=== PATIENT | female | born 1955 | race Caucasian/White ===

== ENCOUNTER → 2016-11-27 | Outpatient (CLI) | payer OTHER ==
[~2016-11-27] MED LIST: CHOL100013 PO; DEXL60CA PO; IBUP200C9 PO; MAGN400C PO; METF500T9 PO; MULT-208 PO; OMEG10006 PO; TURM1POW2 MC
--- NOTE | 2016-11-27 08:56 | KCIC ---
MR LUMBAR SPINE HISTORY:Reason For StudyReason: ACUTE LUMBAR RADICULOPATHY / Spl. Instructions: / History: Pt states chronic LBP, worse in last 2 yrs. Rt hip and leg pain. Technique: Sagittal T2, sagittal STIR, and sagittal T1-weighted images were obtained. Additional axial T1 and T2 weighted imaging was also performed. FINDINGS: There is no compression fracture. Overall bone marrow signal is within normal limits apart from Modic type 2 degenerative endplate changes at L4-L5 and L5-S1. The conus terminates normally at the level of T12. Visualized intra-abdominal contents demonstrates a small cortical cyst on the left. At L5-S1 there is moderate disc height loss and a small disc protrusion. The protrusion and disc height loss to cause moderate right foraminal stenosis. Correlate for right L5 radiculopathy. At L4-L5 there is facet arthropathy with grade 1 degenerative anterolisthesis. There is also ligamentum flavum thickening. This results in moderate central spinal stenosis and right foraminal stenosis. At L3-L4 there is mild facet arthropathy but no spinal stenosis. Impression: - Degenerative disc and facet disease greatest at L4-L5 where there is grade 1 degenerative anterolisthesis and moderate central spinal stenosis. There is also moderate right foraminal stenosis at this level. - L5-S1 there is moderate right foraminal stenosis. Electronically signed by: Zachary Burch (Nov 27, 2016 08:54:41)
== END | disposition home or self-care (01) ==
LOC: KCIC MRI 07:41
PROVIDERS: ATTEND Internal Medicine
DX: M54.16 Radiculopathy, lumbar region (principal)
CPT/HCPCS: 72148

== ENCOUNTER → 2016-12-09 | Outpatient (CLI) | payer OTHER ==
--- NOTE | 2016-12-09 08:51 | KCIC ---
PROCEDURE Lumbar spine, flexion and extension. HISTORY Lower back pain. FINDINGS Lateral neutral, flexion and extension views of the lumbar spine are obtained. There is grade 1 anterolisthesis of L4 on L5, measuring 6 mm in neutral position and increasing to 9 mm with flexion and decreasing to 5 mm with extension. There is grade 1 anterolisthesis of L3 on L4 measuring 2 mm in neutral position and increasing to 6 mm with flexion and decreasing to 1 mm with extension. There is degenerative endplate remodeling with disc space narrowing predominately at L5-S1, and to a lesser extent, L4-L5. There is facet arthropathy predominately at the lower lumbar levels. There are suspected mild scoliosis. IMPRESSION 1. Grade 1 anterolisthesis of L4 on L5, and to a lesser extent, L3 on L4. This changes between flexion and extension. 2. Degenerative change predominately at L5-S1, and to a lesser extent, L4-L5. Electronically signed by: Luicta Preciado (Dec 09, 2016 08:50:18)
== END | disposition home or self-care (01) ==
LOC: KCIC 08:05
PROVIDERS: ATTEND Neurological Surgery
DX: M43.16 Spondylolisthesis, lumbar region (principal)
CPT/HCPCS: 72100

== ENCOUNTER → 2016-12-25 | Outpatient (CLI) | payer OTHER ==
[~2016-12-25] MED LIST changes: +IOHEXOL 180 MG/ML 10 ML VIAL. ONE; +methylPREDNISolone ACETATE 40 MG/ML VIAL. ONE; +methylPREDNISolone ACETATE 80 MG/ML VIAL. ONE
--- NOTE | 2016-12-25 17:39 | PN ---
DATE: 12/25/2016 DIAGNOSES: 1. Lumbar radiculopathy with lumbar spinal stenosis and spondylosis. 2. Cervical radiculopathy with cervical degenerative disk disease and cervical herniated disk. HISTORY OF PRESENT ILLNESS: The patient is a 61-year-old female who returns for followup status post previous cervical epidural steroid injection. The patient was last seen in 09/2015. The patient had done well with injections at that time, returns now with pain in the low back and right lower extremity, mainly with standing and walking, worse with lifting or stooping. The patient reports this as radiating across the low back into the right lateral and anterior medial thigh, medial lower leg into the foot and great toe with pain and occasional numbness with standing. The patient reports a 3 to 10 on a scale of 10, 10 with standing and walking. The patient reports no symptoms on the left side. No loss of motor function, but significant fatigability in the right lower extremity with activity. The patient reports it awakens her from sleep at night that is becoming more and more problematic. The patient did have an MRI scan of the lumbar spine dated 11/27/2016 showing degenerative disk and facet disease, greatest at L4-L5 with grade 1 degenerative anterolisthesis and moderate central spinal stenosis, moderate right foraminal stenosis at this level as well with moderate right foraminal stenosis at L5-S1 also. The patient reports no loss of motor function, but again significant fatigability with the right leg, affecting most of her daily activities significantly and sleeping. PAST MEDICAL HISTORY: Significant for arthritis and cervical spine herniation. FAMILY HISTORY: Significant for cancer and diabetes. PAST SURGICAL HISTORY: Significant for a hysterectomy in 1998. CURRENT MEDICATIONS: Include ibuprofen, vitamin ____, Dexilant, magnesium, omega acids, multivitamins, and Nasonex spray. ALLERGIES: The patient is allergic to CODEINE, LEVAQUIN, and ERYTHROMYCIN. REVIEW OF SYSTEMS: The patient's review of systems is positive for those items mentioned in the history of present illness. It is complete, full, and well documented on the patient's chart. All systems were reviewed and otherwise negative. PHYSICAL EXAMINATION: VITAL SIGNS: Today, the patient's blood pressure is 132/79, pulse 71, respirations 18, and temperature 98.1 degrees Fahrenheit. Height is 5 feet 3-1/2 inches, weighs 166 pounds. GENERAL: The patient is awake, alert, oriented, appropriate, very pleasant demeanor. HEENT: Head shows normocephalic, atraumatic. Extraocular movements are intact and symmetrical. Oral cavity shows mucous membranes are moist and pink. Dentition is intact. NECK: Shows anterior throat supple without palpable lymphadenopathy noted. Swallow reflex is symmetrical. Neck shows good rotational motion of cervical spine including extension and flexion without difficulty or pain reported. CHEST: Shows normal on inspection. Breath sounds are clear to auscultation bilaterally. HEART: Shows S1 and S2 clear. No heart murmurs are auscultated. ABDOMEN: Soft, nontender, and nondistended. No palpable organomegaly is noted. No rebound or guarding demonstrated. BACK: Shows spine grossly in midline. No previous bruises, lesions, rashes, or scars are noted. Lumbar paraspinous muscle shows symmetrical on appearance, with palpation shows some mild tenderness to palpation, but only diffusely in the lower lumbar distribution bilaterally and is roughly symmetrical. No radiation, no evidence of atrophy or hypertrophy. No tenderness over the spinous processes, sacrum, or sacroiliac regions. The patient shows good rotation and motion of the lumbar spine both laterally greater than 10 degrees right and left as well as extension greater than 10 degrees, forward flexion 45 degrees without difficulty or pain reported. Lower extremities show deep tendon reflexes at 2+ in the patellar, 1+ tendo calcaneus tendons. Motor exam is strong with 5/5 dorsiflexion and extension. Quadriceps and hamstring flexion is symmetrical. Straight leg raise is negative bilaterally. Gaenslen's and Teoiflo's maneuvers are negative for reproduction of pain bilaterally as well. The patient is able to stand on her toes without difficulty or loss of balance, walks with a normal-appearing gait for short distance in the office, not using any assistive devices. Options were discussed with the patient, and the patient's old chart was reviewed and her current medication regimen updated again as noted. We will plan on a lumbar epidural steroid injection today with fluoroscopic guidance. This procedure was discussed using models to describe the procedure as well as risks discussed including, but not limited to bleeding, infection, possibility of epidural hematoma, subsequent neurologic compromise, dural puncture, headaches, spinal cord and/or nerve damage, side effects of steroid medication, and poor results regarding pain control. The patient understands and wishes to proceed. The patient will return to the clinic in approximately 2 weeks for followup, was counseled on return appointment, activity level, and side effects to be aware of. DIAGNOSIS: Lumbar radiculopathy with lumbar spinal stenosis and lumbar spondylosis. PROCEDURES: Lumbar epidural steroid injection in translaminar approach at the L4-L5 level using C-arm fluoroscopic guidance under sterile prep and drape using local anesthetic. MEDICATION INJECTED: Depo-Medrol 120 mg plus 10 mL of preservative-free normal saline and 2 mL of Isovue for contrast. CONDITION AT DISCHARGE: Stable. The patient tolerated procedure well, had no complications. ODALYS ROBERTS MD DR: STEVEN/shelbie JOB#: [id number] / [id number]
== END ==
LOC: PNCL 07:24
PROVIDERS: ATTEND Anesthesiology
DX: M48.06 Spinal stenosis, lumbar region (principal); M54.16 Radiculopathy, lumbar region; M47.896 Other spondylosis, lumbar region; Z83.3 Family history of diabetes mellitus; M19.90 Unspecified osteoarthritis, unspecified site
CPT/HCPCS: 62323; J1030; J1040

== ENCOUNTER → 2017-01-08 | Outpatient (CLI) | payer OTHER ==
--- NOTE | 2017-01-08 18:47 | PAIN ---
DATE OF SERVICE: 01/08/2017 PROGRESS NOTE FOR PAIN CLINIC DIAGNOSES: 1. Cervical radiculopathy with cervical degenerative disk disease and cervical herniated disk. 2. Lumbar radiculopathy with lumbar spinal stenosis and lumbar spondylosis. HISTORY OF PRESENT ILLNESS: The patient is a 61-year-old female who returns for followup status post cervical epidural steroid injection x 2 and lumbar epidural steroid injection x 1. The patient reports she did quite well after the last injection in the low back with about 60% improvement overall in the low back, right leg. The patient reports the pain is returning now over the past several weeks in the right posterior gluteus, posterior lateral thigh and posterior lower leg to the ankle. The patient reports 3 on the scale of 10 currently, has a pulsing sensations which is aching and dull and radiating and she is no longer limping after the last injection. The patient reports her neck is doing well. Also, the patient reports no new motor or sensory deficits, no new bowel or bladder incontinence or other complaints. PHYSICAL EXAMINATION: VITAL SIGNS: The patient's blood pressure 120/82, pulse is 80, respirations 20, temperature 98.3 degrees Fahrenheit, height 5 feet 3 inches, weighs 166 pounds. GENERAL: The patient is awake, alert, oriented, appropriate, very pleasant demeanor. HEENT: Head shows normocephalic, atraumatic. Extraocular movements are intact and symmetrical. Oral cavity, mucous membranes are moist and pink. Dentition is intact. NECK: Shows anterior throat supple without palpable lymphadenopathy noted. Swallow reflex is symmetrical. CHEST: Shows normal on inspection. Breath sounds clear to auscultation bilaterally. HEART: Shows S1 and S2 clear. ABDOMEN: Soft, nontender, nondistended. No palpable organomegaly. There is no rebound or guarding demonstrated. BACK: Shows spine grossly midline. Lumbar paraspinous musculature shows some moderate tenderness with palpation in the lower lumbar distribution only bilaterally. No atrophy, hypertrophy, no radiation of pain, no tenderness over the sacrum or sacroiliac regions. The patient has good rotational motion of lumbar spine, both laterally as well as extension and flexion without significant pain reported. EXTREMITIES: Lower extremities showed deep tendon reflexes at 2+ in the patellar and 1+ tendo calcaneus tendons are equal. Motor exam is strong with 5/5 dorsiflexion, extension, quadriceps and hamstring flexion and are symmetrical. Options were discussed with the patient and the patient's old chart was reviewed as her current medication regimen updated. Current review of systems updated today as well. We will proceed with a lumbar epidural steroid injection today is the first in the series with fluoroscopic guidance. Risks were again discussed including, but not limited to bleeding, infection, possibility of epidural hematoma, subsequent neurologic compromise, dural puncture, headaches, spinal cord and/or nerve damage, side effects of steroid medication and poor results regarding pain control. The patient understands and wishes to proceed. The patient will return to the clinic in approximately 2 weeks for followup, was counseled on return appointment, activity level and side effects to be aware of. DIAGNOSES: Lumbar radiculopathy with lumbar spondylosis and lumbar spinal stenosis. PROCEDURE: Lumbar epidural steroid injection in translaminar approach at the L5-S1 level using C-arm fluoroscopic guidance under sterile prep and drape using local anesthetic. MEDICATIONS INJECTED: 120 mg Depo-Medrol plus 10 mL of preservative-free normal saline and 2 mL Isovue for contrast. CONDITION AT DISCHARGE: Stable. The patient tolerated procedure well, had no complications. ODALYS ROBERTS MD DR: STEVEN/shelbie JOB#: [id number] / [id number]
== END | disposition home or self-care (01) ==
LOC: PNCL 07:49
PROVIDERS: ATTEND Anesthesiology
DX: M47.26 Other spondylosis with radiculopathy, lumbar region (principal); M48.06 Spinal stenosis, lumbar region; M50.10 Cervical disc disorder with radiculopathy, unspecified cervical region
CPT/HCPCS: 62323; J1030; J1040

== ENCOUNTER → 2017-06-04 | Outpatient (CLI) | payer BC, OTHER ==
[~2017-06-04] MED LIST changes: -DEXL60CA PO; +DEXL60CA2 PO
--- NOTE | 2017-06-04 09:01 | PAIN ---
DATE OF SERVICE: 06/04/2017 DIAGNOSES: 1. Cervical radiculopathy with cervical degenerative disk disease, cervical herniated disk. 2. Lumbar radiculopathy with lumbar spinal stenosis and lumbar spondylosis. HISTORY OF PRESENT ILLNESS: The patient is a 62-year-old female who returns for followup status post lumbar epidural steroid injection on 01/08/2017. The patient did very well with this, about 50% improvement overall, still lasting about 50%; still some pain in the low back and right hip, right lower extremity with walking, standing, especially going downhill, but not up or climbing stairs. The patient reports ____ 10 on a scale of 10, worse is 5-6, ____ it is about 7 on an average, it is 7 today. The patient reports an aching, sharp, dull, tight, stabbing, radiating, constant and becoming more severe pain in the right hip and groin, also in the right posterior gluteus, posterior thigh and into the lower leg occasionally, but much better after the last injection. The patient reports it does not awaken her from sleep at night. She feels better with lying down or sitting and reports no new motor or sensory deficits, no new bowel or bladder incontinence or other complaints. PHYSICAL EXAMINATION: VITAL SIGNS: The patient's blood pressure is 145/85, pulse is 79, respirations is 18, temperature is 98.0 degrees Fahrenheit. Height is 5 feet 3 inches, weight is 169 pounds. GENERAL: The patient is awake, alert, oriented, appropriate, very pleasant demeanor. HEENT: Head shows normocephalic, atraumatic. Extraocular muscles are intact and symmetrical. Oral cavity, mucous membranes are moist and pink. Dentition is intact. NECK: Shows anterior throat supple without palpable lymphadenopathy noted. Swallow reflex is symmetrical. CHEST: Normal on inspection. Breath sounds clear to auscultation bilaterally. HEART: Shows S1 and S2 clear. ABDOMEN: Soft, nontender, nondistended. BACK: Shows spine grossly midline. Lumbar paraspinous muscle shows some normal symmetry in appearance; with palpation shows some [id number] tenderness with palpation in the lower lumbar distribution, but only diffusely without radiation bilaterally. The patient shows good rotational motion of lumbar spine, both laterally as well as extension and flexion without difficulty. EXTREMITIES: Lower extremities show deep tendon reflexes at 2+ in the patellar, 1+ tendo-calcaneus, tendons are equal. Motor exam is strong with 5/5 dorsiflexion, extension and equal and symmetrical bilaterally as well. Options were discussed with the patient. The patient's old chart was reviewed and her current medication regimen updated. Current review of systems updated today as well. We will proceed with a lumbar epidural steroid injection, second in this series. Risks were again discussed including, but not limited to bleeding, infection, possibility of epidural hematoma and subsequent neurological compromise, dural puncture, headaches, spinal cord and/or nerve damage, side effects of steroid medication and poor results regarding pain control. The patient understands and wishes to proceed. The patient will return to clinic in approximately 2 weeks for followup. She was counseled as to return appointment, activity level and side effects to be aware of. DIAGNOSIS: Lumbar radiculopathy with lumbar spinal stenosis ____. PROCEDURE: Lumbar epidural steroid injection in translaminar approach using C-arm fluoroscopic guidance under sterile prep and drape using local anesthetic. Medication injected total of 120 mg Depo-Medrol plus 10% of preservative-free normal saline and 2 mL of Isovue for contrast. CONDITION AT DISCHARGE: Stable. The patient tolerated the procedure well, had no complications. ODALYS ROBERTS MD DR: STEVEN/shelbie JOB#: [id number] / [id number]
== END | disposition home or self-care (01) ==
LOC: PNCL 07:37
PROVIDERS: ATTEND Anesthesiology
DX: M48.06 Spinal stenosis, lumbar region (principal); M54.10 Radiculopathy, site unspecified; M50.10 Cervical disc disorder with radiculopathy, unspecified cervical region; Z88.6 Allergy status to analgesic agent; Z88.1 Allergy status to other antibiotic agents
CPT/HCPCS: 62323; J1030; J1040

== ENCOUNTER → 2017-08-13 | Outpatient (CLI) | payer OTHER ==
[~2017-08-13] MED LIST changes: -IOHEXOL 180 MG/ML 10 ML VIAL. ONE; -methylPREDNISolone ACETATE 40 MG/ML VIAL. ONE; -methylPREDNISolone ACETATE 80 MG/ML VIAL. ONE
--- NOTE | 2017-08-13 16:48 | KCIC ---
MRI of the lumbar spine without contrast 08/13/2017 CLINICAL HISTORY: Chronic low back pain with bilateral leg pain, burning, numbness and tingling. TECHNIQUE: Unenhanced T1-weighted and T2-weighted sagittal and axial and inversion recovery sagittal images of the lumbar spine were obtained. FINDINGS: Comparison study is dated 11/27/2016. Mild S-shaped curvature of the thoracolumbar spine is seen. Mild to moderate anterolisthesis of L4 in relation to L5 is seen. Degenerative signal changes and loss of height are seen involving the L4-5 and L5-S1 discs. Degenerative signal changes are seen within the marrow surrounding these discs. The conus medullaris is normal morphology, position, and signal characteristics. At the L1-2, L2-3 and L3-4 disc spaces there are mild generalized disc bulges. Degenerative changes are seen involving the facet joints bilaterally. There is mild ligamentum flavum hypertrophy bilaterally. These findings when combined do not result in significant central spinal canal or neural foraminal stenosis. At the L4-5 disc space is a moderate generalized disc bulge. Superimposed on the disc bulge is a right lateral focal disc herniation which extrudes superiorly within the right neural foramen. This measures 4 mm in AP diameter. Degenerative changes are seen involving the facet joints bilaterally. There is moderate to severe ligamentum flavum hypertrophy. A moderate right facet joint effusion is seen. A small left facet joint effusion is noted. These findings when combine with the anterolisthesis result in moderate to severe central spinal canal stenosis. Moderate right neural foraminal stenosis is seen. The left neural foramen is patent. At the L5-S1 disc space there is a mild generalized disc bulge. Degenerative changes are seen involving the facet joints, right greater than left. There is mild to moderate ligamentum flavum hypertrophy. These findings do not result in significant central spinal canal stenosis. Mild right neural foraminal stenosis is seen. The left neural foramen is patent. These findings have not significantly changed since the previous examination. IMPRESSION: The changes of degenerative disc disease are seen throughout the lumbar spine. These findings result in moderate to severe central spinal canal stenosis with moderate right neural foraminal stenosis at L4-5. Mild right neural foraminal stenosis is seen L5-S1. Electronically signed by: Hernesto Cross MD (08/13/2017 4:44 PM) [email or web address]
== END | disposition home or self-care (01) ==
LOC: KCIC MRI 15:14
PROVIDERS: ATTEND Neurological Surgery
DX: M51.16 Intervertebral disc disorders with radiculopathy, lumbar region (principal); M48.061 Spinal stenosis, lumbar region without neurogenic claudication; R20.0 Anesthesia of skin
CPT/HCPCS: 72148

== ENCOUNTER → 2017-09-15 | Outpatient (CLI) | payer OTHER ==
[~2017-09-15] MED LIST changes: +ALPR0.25 PO; +FAMC500T PO; +FAMO40TA57 PO; +IBUP200T58 PO; +LIPOZENE PO; +MOME17SP NS; +[UNRECOGNIZED DRUG - OTHER] PO; +[UNRECOGNIZED DRUG - REMARK] PO
[2017-09-15 16:21] LABS: INR 0.9 (0.8-1.1); PROTHROMBIN TIME PATIENT 11.5 SEC (11.7-14.0)
== END | disposition home or self-care (01) ==
LOC: SURGPAT 15:06
PROVIDERS: ATTEND Neurological Surgery
DX: Z01.818 Encounter for other preprocedural examination (principal); M51.16 Intervertebral disc disorders with radiculopathy, lumbar region; M43.16 Spondylolisthesis, lumbar region; M48.061 Spinal stenosis, lumbar region without neurogenic claudication
CPT/HCPCS: 36415; 85610; 85730; 87641

== ENCOUNTER → 2017-12-15 | Outpatient (CLI) | payer OTHER | END | disposition home or self-care (01) | LOC: KCIC 08:40 | DX: M43.26 Fusion of spine, lumbar region (principal); M43.16 Spondylolisthesis, lumbar region; M16.11 Unilateral primary osteoarthritis, right hip | CPT/HCPCS: 72100; 73502 ==

== ENCOUNTER → 2018-03-13 | Outpatient (CLI) | payer OTHER | END | disposition home or self-care (01) | LOC: KCIC 09:19 | DX: M47.897 Other spondylosis, lumbosacral region (principal); Z98.1 Arthrodesis status | CPT/HCPCS: 72100 ==

== ENCOUNTER → 2019-12-17 | Outpatient (CLI) | payer OTHER ==
[2018-06-11 13:00] VITALS: BP 122/73
[~2019-12-17] MED LIST changes: +DOCU-109 PO; -FAMC500T PO; +FAMC500T3 PO; +METF500T11 PO; -METF500T9 PO; +METH750T2 PO; +OXYC1TAB7 PO
--- NOTE | 2019-12-17 12:19 | KCIC ---
EXAM: Right hip, 2 views; lumbar spine, 5 views. HISTORY: Pain. COMPARISON: 03/13/2018 FINDINGS: Right hip: 2 views of the right hip are obtained. There is a right hip arthroplasty in expected position. There is no evidence of arthroplasty loosening or fracture. Lumbar spine: 5 views of the lumbar spine are obtained. There is an incidental hypoplastic left T12 rib. There is mild S-shaped thoracolumbar scoliosis. There is instrumented fusion and disc space fusion device placement at L4-L5. There is grade 1 anterolisthesis this level. There is also grade 1 anterolisthesis of L3 on L4. There is degenerative endplate remodeling with disc space narrowing and facet arthropathy predominantly at L5-S1. IMPRESSION: 1. Degenerative change involving the lumbar spine, primarily at L5-S1. 2. Instrumented fusion at L4-L5. There is grade 1 anterolisthesis at this level, and to a lesser extent, L3 on L4. 3. Right hip arthroplasty in expected position. Electronically signed by: Lucita Preciado MD (12/17/2019 12:16 PM) [id number]
== END | disposition home or self-care (01) ==
LOC: KCIC 09:10
PROVIDERS: ATTEND Internal Medicine
DX: M47.817 Spondylosis without myelopathy or radiculopathy, lumbosacral region (principal); M43.16 Spondylolisthesis, lumbar region; M48.061 Spinal stenosis, lumbar region without neurogenic claudication; M12.88 Other specific arthropathies, not elsewhere classified, other specified site; M41.85 Other forms of scoliosis, thoracolumbar region; M43.26 Fusion of spine, lumbar region; M25.551 Pain in right hip; Z96.641 Presence of right artificial hip joint; W19.XXXA Unspecified fall, initial encounter; Y93.89 Activity, other specified; Y92.89 Other specified places as the place of occurrence of the external cause; Y99.8 Other external cause status
CPT/HCPCS: 72110; 73502